=== PATIENT | female | born 1965 | race Caucasian/White ===

== ENCOUNTER 2018-12-30 20:19 | Inpatient (IN) | payer OTHER ==
--- NOTE | 2018-12-30 20:35 | PDOC ---
Rapid Medical Evaluation Time Seen by Provider: 12/30/18 20:28 Medical Evaluation: 12/30/18 20:28 I have performed a brief in-person evaluation of this patient. The patient presents with a chief complaint of: sent by PMD for osteomyelitis Pertinent physical exam findings: R 3rd finger paronychia I have ordered the following: labs, urine The patient will proceed to the ED for further evaluation. Discharge Disposition - Diagnosis Paronychia - Referrals - Patient Instructions - Post Discharge Activity
[2018-12-30 21:26] LABS: BASO % 0.5 % (0-2.0); EOS % 1.2 % (0-4.5); HEMOGLOBIN 13.5 GM/dL (10.7-15.3); LYMPH % 29.6 % (8-40); MCH 30.1 pg (25.7-33.7); MCHC 33.8 g/dl (32.0-36.0); MEAN CELL VOLUME 89.1 fl (80-96); MEAN PLT VOLUME 8.1 fl (7.5-11.1); MONO % 9.9 % (3.8-10.2); NEUT % 58.8 % (42.8-82.8); PLATELET COUNT 189 K/MM3 (134-434); RBC 4.48 M/mm3 (3.60-5.2); RDW 14.3 % (11.6-15.6); WHITE BLOOD COUNT 4.1 K/mm3 (4.0-10.0)
[2018-12-30 21:52] LABS: URINE APPEARANCE CLEAR; URINE BILIRUBIN NEGATIVE (<2.0 mg/dL); URINE COLOR STRAW; URINE GLUCOSE (UA) NEGATIVE (NEGATIVE); URINE KETONE NEGATIVE (NEGATIVE); URINE LEUK ESTERASE NEGATIVE (NEGATIVE); URINE NITRITE NEGATIVE (NEGATIVE); URINE PROTEIN 1+ (NEGATIVE); URINE UROBILINOGEN NEGATIVE mg/dL (0.2-1.0)
[2018-12-30 21:53] LABS: HCG,QUALITATIVE URINE Negative
--- NOTE | 2018-12-30 21:55 | PDOC ---
*Physical Exam - Vital Signs Last Vital Signs Temp Pulse Resp BP Pulse Ox 98.5 F 74 18 120/76 97 12/30/18 20:33 12/30/18 20:33 12/30/18 20:33 12/30/18 20:33 12/30/18 20:33 ED Treatment Course - LABORATORY CBC & Chemistry Diagram: 12/30/18 21:02 12/30/18 21:05 - ADDITIONAL ORDERS Additional order review: Laboratory Results 12/30/18 21:09 Urine HCG, Qual Negative 12/30/18 21:02 RBC 4.48 MCV 89.1 MCHC 33.8 RDW 14.3 MPV 8.1 Neutrophils % 58.8 Lymphocytes % 29.6 Monocytes % 9.9 Eosinophils % 1.2 Basophils % 0.5 Medical Decision Making - Medical Decision Making 12/30/18 21:54 Sock the rightPatient seen by the advanced practice provider under my direct supervision. Ancillary testing reviewed as necessary. I agree with plan as outlined by the advanced practice provider. *DC/Admit/Observation/Transfer Diagnosis at time of Disposition: Paronychia, Osteomyelitis - Referrals - Patient Instructions - Post Discharge Activity
[2018-12-30 22:12] LABS: ALBUMIN 3.5 g/dl (3.4-5.0); ALK PHOS 57 U/L (45-117); ANION GAP 5 MMOL/L (8-16); BILIRUBIN,TOTAL 0.2 mg/dL (0.2-1); BLOOD UREA NITROGEN 19 mg/dL (7-18); CALCIUM 8.7 mg/dL (8.5-10.1); CHLORIDE 102 mmol/L (98-107); CO2 30 mmol/L (21-32); CREATININE 0.6 mg/dL (0.55-1.3); GLUCOSE,RANDOM 74 mg/dL (74-106); POTASSIUM 3.9 mmol/L (3.5-5.1); SGOT/AST 32 U/L (15-37); SGPT/ALT 33 U/L (13-61); SODIUM 136 mmol/L (136-145)
--- NOTE | 2018-12-30 22:27 | PDOC ---
History of Present Illness - General Chief Complaint: Pain Stated Complaint: DOCTOR SENT HER Time Seen by Provider: 12/30/18 20:28 History Source: Patient Exam Limitations: Language Barrier Past History - Past Medical History Allergies/Adverse Reactions: Allergies Allergy/AdvReac Type Severity Reaction Status Date / Time No Known Allergies Allergy Verified 12/30/18 20:29 COPD: No Other medical history: Lupus, Reynauds - Surgical History Cardiac Surgery: Yes (Pericardiocentesis 2014) - Suicide/Smoking/Psychosocial Hx Smoking History: Never smoked Have you smoked in the past 12 months: No Information on smoking cessation initiated: No Hx Alcohol Use: No Drug/Substance Use Hx: No *Physical Exam - Vital Signs Last Vital Signs Temp Pulse Resp BP Pulse Ox 98.5 F 74 18 120/76 97 12/30/18 20:33 12/30/18 20:33 12/30/18 20:33 12/30/18 20:33 12/30/18 20:33 - Physical Exam General Appearance: No: Apparent Distress Neck: positive: Supple Respiratory/Chest: positive: Lungs Clear, Normal Breath Sounds. negative: Respiratory Distress Cardiovascular: positive: Regular Rhythm, Regular Rate, S1, S2. negative: Murmur Musculoskeletal: positive: Other (distal R middle finger with mild swelling, dried pus around nail bed, slight erythema to site, no fluctuance to site, no active drainage, no streaking) Extremity: positive: Normal Capillary Refill Neurologic: positive: Alert, Normal Mood/Affect Moderate Sedation - Procedure Monitoring Vital Signs: Procedure Monitoring Vital Signs Temperature 98.5 F 12/30/18 20:33 Pulse Rate 74 12/30/18 20:33 Respiratory Rate 18 12/30/18 20:33 Blood Pressure 120/76 12/30/18 20:33 O2 Sat by Pulse Oximetry (%) 97 12/30/18 20:33 ED Treatment Course - LABORATORY CBC & Chemistry Diagram: 12/30/18 21:02 12/30/18 21:05 - ADDITIONAL ORDERS Additional order review: Laboratory Results 12/30/18 12/30/18 21:09 21:05 Sodium 136 Potassium 3.9 Chloride 102 Carbon Dioxide 30 Anion Gap 5 L BUN 19 H Creatinine 0.6 Creat Clearance w eGFR > 60 Random Glucose 74 Calcium 8.7 Total Bilirubin 0.2 AST 32 ALT 33 Alkaline Phosphatase 57 C-Reactive Protein 0.4 H Total Protein 8.0 Albumin 3.5 Urine Color Straw Urine Appearance Clear Urine pH 6.0 Ur Specific [place] 1.009 L Urine Protein 1+ H Urine Glucose (UA) Negative Urine Ketones Negative Urine Blood Negative Urine Nitrite Negative Urine Bilirubin Negative Urine Urobilinogen Negative Ur Leukocyte Esterase Negative Urine WBC (Auto) <1 Urine RBC (Auto) <1 Urine HCG, Qual Negative 12/30/18 21:02 RBC 4.48 MCV 89.1 MCHC 33.8 RDW 14.3 MPV 8.1 Neutrophils % 58.8 Lymphocytes % 29.6 Monocytes % 9.9 Eosinophils % 1.2 Basophils % 0.5 - RADIOLOGY Radiology Studies Ordered: Category Date Time Status FINGER(S) RIGHT [RAD] Stat Radiology 12/30/18 22:24 Ordered Medical Decision Making - Medical Decision Making 53 y/o F with hx of Raynaud's, Lupus presents as was sent by her PCP for R middle finger infection. Patient mentions R middle finger has been swollen and red for 1 month and last week, patient had MRI done which raised concern for osteomyelitis. Patient was notified of MRI results today and was advised to come to [facility] for evaluation. Denies trauma to finger. Mentions due to her Raynaud's disease, she frequently will get mild infections along her fingertips (from skin getting dry and cracked), but usually they drain and resolve with antibiotics. However, this is first time it has progressed to osteomyelitis. Mentions she just recently finished 10 day course of Doxycycline 2 days ago. Denies fever, sob, cp, abd pain, n/v. Patient did not have MRI report with her Spoke to patient's vascular doctor, Dr. Mora, who faxed over MRI report MRI shows OM of 3rd distal phalanx with overlying cellulitis Dr. Mora requests admission and ID consult for drug tx of choice Labs sent Will give Vancomycin and Ceftriaxone To admit patient 12/30/18 22:33 *DC/Admit/Observation/Transfer Diagnosis at time of Disposition: Osteomyelitis Qualifiers: Osteomyelitis type: other acute Osteomyelitis location: hand Laterality: right Qualified Code(s): M86.141 - Other acute osteomyelitis, right hand - Discharge Dispostion Condition at time of disposition: Stable Decision to Admit order: Yes - Referrals - Patient Instructions - Post Discharge Activity
[2018-12-30] MEDS ORDERED: CEFTRIAXONE 2,000 MG in DEXTROSE 5%-WATER - 50 ML IVPB ONE (23:20)
[2018-12-30] MEDS ORDERED: VANCOMYCIN 1 GM in D5W (PRE-DOCKED) 1,000 MG/250 ML IVPB ONE (23:21)
[2018-12-31] MEDS ORDERED: VANCOMYCIN 1 GRAM (PRE-DOCKED) 1,000 MG/250 ML BAG IVPB ONE (00:20)
[2018-12-31] MEDS ORDERED: CEFTRIAXONE 2 GM/100 ML BAG IVPB ONE (00:20)
[2018-12-31] MEDS: VANCOMYCIN 1 GM in D5W (PRE-DOCKED) 1,000 MG/250 ML IVPB SCH ×2 (01:22→13:23)
--- NOTE | 2018-12-31 01:32 | PN ---
Teaching Attending Note Name of Resident: Sarita Smith ATTENDING PHYSICIAN STATEMENT I saw and evaluated the patient. I reviewed the resident's note and discussed the case with the resident. I agree with the resident's findings and plan as documented. SUBJECTIVE: Patient is a 53 year old woman with PMH of Raynaud's and SLE sent by her PCP for right middle finger infection. Patient says right middle finger has been swollen and red for one month and last week, patient had MRI done which raised concern for osteomyelitis. Patient was notified of MRI results today and was advised to come to [facility] for evaluation. Denies trauma to finger. Due to her Raynaud's disease, says she frequently will get mild infections along her fingertips (from skin getting dry and cracked), but usually they drain and resolve with antibiotics. However, this is first time it has progressed to osteomyelitis. She just recently finished 10 day course of Doxycycline 2 days ago. Denies fever, sob, chest pain, chills, abdominal pain, nausea, vomiting, change in bowel habits or dysuria. OBJECTIVE: Alert Vital Signs Period Temp Pulse Resp BP Sys/[place] Pulse Ox Last 24 Hr 98.5 F 74 18 120/76 97 HEENT: No Jaundice, eye redness or discharge, PERRLA, EOMI. Normocephalic, atraumatic. External ears are normal and hearing is grossly intact. No nasal discharge. Neck: Supple, nontender. No palpable adenopathy or thyromegaly. No JVD Chest: Good effort. Clear to auscultation and percussion. Heart: Regular. No S3, rub or murmur Abdomen: Not distended, soft, nontender and no HSM. No rebound or guarding. Normal bowel sounds. Ext: Peripheral pulses intact. Swollen distal right middle finger with wound on the nail bed. No drainage but tender. Skin: Warm and dry. No petechiae, rash or ecchymosis. Neuro: Alert. Oriented x3. CN 2-12 grossly intact. Sensation grossly intact in all four extremities and DTR are symmetric. Psych: Appropriate mood and affect. Good insight. Current Medications Generic Name Dose Route Start Last Admin Trade Name Freq PRN Reason Stop Dose Admin Enoxaparin Sodium 40 mg 12/31/18 10:00 Lovenox - SQ DAILY KENNETH Ceftriaxone Sodium 2,000 mg/ 50 mls @ 100 mls/hr 12/31/18 20:00 Dextrose IVPB DAILY KENNETH Oxycodone/Acetaminophen 1 combo 12/31/18 01:00 Percocet 5/325 - PO Q6H PRN PAIN LEVEL 6-10 Vancomycin HCl 1,000 mg 12/31/18 01:15 12/31/18 01:22 Vancomycin (Pre-Docked) IVPB 1,000 mg Q12H KENNETH Administration Protocol Abnormal Lab Results 12/30/18 12/30/18 12/30/18 21:05 21:05 21:09 ESR 39 H Anion Gap 5 L BUN 19 H C-Reactive Protein 0.4 H Ur Specific [place] 1.009 L Urine Protein 1+ H ASSESSMENT AND PLAN: 1. Osteomyelitis and cellulitis of right middle finger - MRI shows osteomyelitis of 3rd distal phalanx with overlying cellulitis. Will send wound culture and treat with IV vancomycin and rocephin. Consult ID and Rheumatology. Continue current home regimen for SLE and Raynaud's. 2. DVT prophylaxis - Lovenox 40 mg SQ q 24 hours. 3. Advance directives - Full code
--- NOTE | 2018-12-31 01:57 | HP ---
CHIEF COMPLAINT:right 3rd finger wound PCP:Dr. Whitt Rheum: Dr. Mora HISTORY OF PRESENT ILLNESS: Patient is a 53 year old female with past medical history of SLE, Raynaud's and HTN, presented to the ED with nonhealing wound of the right 3rd finger since 1 month ago. Patient denies any trauma, reported her wound started one month ago at the nail bed, possibly due to her Raynaud's disease where she had similar episodes the past years during Winter time that resolved with oral antibiotics. This time, the wound worsened with her entire 3rd finger becoming swollen and tender. She went to her PCP where she was prescribed Doxycycline which she completed for 10 days. She noted improvement of the swelling but the wound persisted. Patient went to Dr. Mora's office for follow-up where MRI was ordered and results showed osteomyelitis. Patient was subsequently asked to come to the ED to be evaluated. Patient denies any fever, chills, headache, dizziness, nausea, vomiting, chest pain, SOB, palpitations, abdominal pain, diarrhea, urinary symptoms. ER course was notable for: (1)MRI right hand (10/23/19): Findings compatible with osteomyelitis of the third distal phalanx with overlying cellulitis. There is probable cellulitis involving the fourth distal ray as well as evidence for osteitis versus incipient osteomyelitis of the fourth distal phalanx. Possible osteitis invovling the second distal phalanx as well. No evidence for abscess. (2) (3) Recent Travel:denies PAST MEDICAL HISTORY: SLE Raynaud's HTN PAST SURGICAL HISTORY: Pericardiocentesis (2014 at [place] for pericardial effusion) delivery x1 Social History: Smoking:denies Alcohol:denies Drugs: denies Family History: Mother - HTN Allergies No Known Allergies Allergy (Verified 12/30/18 20:29) HOME MEDICATIONS: REVIEW OF SYSTEMS CONSTITUTIONAL: Absent: fever, chills, diaphoresis, generalized weakness, malaise, loss of appetite, weight change HEENT: Absent: rhinorrhea, nasal congestion, throat pain, throat swelling, difficulty swallowing, mouth swelling, ear pain, eye pain, visual changes CARDIOVASCULAR: Absent: chest pain, syncope, palpitations, irregular heart rate, lightheadedness , peripheral edema RESPIRATORY: Absent: cough, shortness of breath, dyspnea with exertion, orthopnea, wheezing, stridor, hemoptysis GASTROINTESTINAL: Absent: abdominal pain, abdominal distension, nausea, vomiting, diarrhea, constipation, melena, hematochezia GENITOURINARY: Absent: dysuria, frequency, urgency, hesitancy, hematuria, flank pain, genital pain MUSCULOSKELETAL: joint swelling, tenderness of right third distal phalanx Absent: myalgia, arthralgia, back pain, neck pain SKIN: Absent: rash, itching, pallor HEMATOLOGIC/IMMUNOLOGIC: Absent: easy bleeding, easy bruising, lymphadenopathy, frequent infections ENDOCRINE: Absent: unexplained weight gain, unexplained weight loss, heat intolerance, cold intolerance NEUROLOGIC: Absent: headache, focal weakness or paresthesias, dizziness, unsteady gait, seizure, mental status changes, bladder or bowel incontinence PSYCHIATRIC: Absent: anxiety, depression, suicidal or homicidal ideation, hallucinations. PHYSICAL EXAMINATION Vital Signs - 24 hr 12/30/18 20:33 Temperature 98.5 F Pulse Rate 74 Respiratory 18 Rate Blood Pressure 120/76 O2 Sat by Pulse 97 Oximetry (%) GENERAL: Awake, alert, and fully oriented, in no acute distress. HEAD: Normal with no signs of trauma. EYES:PERRLA, EOMI, sclera anicteric, conjunctiva clear. EARS, NOSE, THROAT: Ears normal,oropharynx clear without exudates. Moist mucous membranes. NECK: Normal range of motion, supple without lymphadenopathy, JVD, or masses. LUNGS: Breath sounds equal, clear to auscultation bilaterally. HEART: Regular rate and rhythm, normal S1 and S2 without murmur, rub or gallop. ABDOMEN: Soft, nontender, not distended, normoactive bowel sounds. MUSCULOSKELETAL: Normal range of motion at all joints. No CVA tenderness. UPPER EXTREMITIES: 2+ pulses, warm, well-perfused. No peripheral edema. Right hand: +nondraining wound with eschar on the 3rd distal phalanx of right hand, + tenderness, warmth and erythema of the right 3rd finger. LOWER EXTREMITIES: 2+ pulses, warm, well-perfused. No calf tenderness. No peripheral edema. NEUROLOGICAL: Cranial nerves II-XII intact. Motor strength 5/5, Sensation intact. Normal speech. Normal gait. PSYCHIATRIC: Cooperative. Good eye contact. Appropriate mood and affect. SKIN: Warm, dry, normal turgor. Laboratory Results - last 24 hr 12/30/18 12/30/18 12/30/18 21:02 21:05 21:05 WBC 4.1 RBC 4.48 Hgb 13.5 Hct 40.0 MCV 89.1 MCH 30.1 MCHC 33.8 RDW 14.3 Plt Count 189 MPV 8.1 Absolute Neuts (auto) 2.4 Neutrophils % 58.8 Lymphocytes % 29.6 Monocytes % 9.9 Eosinophils % 1.2 Basophils % 0.5 Nucleated RBC % 0 ESR 39 H Sodium 136 Potassium 3.9 Chloride 102 Carbon Dioxide 30 Anion Gap 5 L BUN 19 H Creatinine 0.6 Creat Clearance w eGFR > 60 Random Glucose 74 Calcium 8.7 Total Bilirubin 0.2 AST 32 ALT 33 Alkaline Phosphatase 57 C-Reactive Protein 0.4 H Total Protein 8.0 Albumin 3.5 Urine Color Urine Appearance Urine pH Ur Specific [place] Urine Protein Urine Glucose (UA) Urine Ketones Urine Blood Urine Nitrite Urine Bilirubin Urine Urobilinogen Ur Leukocyte Esterase Urine WBC (Auto) Urine RBC (Auto) Urine HCG, Qual 12/30/18 21:09 WBC RBC Hgb Hct MCV MCH MCHC RDW Plt Count MPV Absolute Neuts (auto) Neutrophils % Lymphocytes % Monocytes % Eosinophils % Basophils % Nucleated RBC % ESR Sodium Potassium Chloride Carbon Dioxide Anion Gap BUN Creatinine Creat Clearance w eGFR Random Glucose Calcium Total Bilirubin AST ALT Alkaline Phosphatase C-Reactive Protein Total Protein Albumin Urine Color Straw Urine Appearance Clear Urine pH 6.0 Ur Specific [place] 1.009 L Urine Protein 1+ H Urine Glucose (UA) Negative Urine Ketones Negative Urine Blood Negative Urine Nitrite Negative Urine Bilirubin Negative Urine Urobilinogen Negative Ur Leukocyte Esterase Negative Urine WBC (Auto) <1 Urine RBC (Auto) <1 Urine HCG, Qual Negative ASSESSMENT/PLAN: Patient is a 53 year old female with past medical history of SLE, Raynaud's and HTN, presented to the ED with nonhealing wound of the right 3rd finger since 1 month ago. #Cellulitis/Osteomyelitis of the right 3rd distal phalanx -Xray of right 3rd finger done -MRI right hand (10/23/19): Findings compatible with osteomyelitis of the third distal phalanx with overlying cellulitis. There is probable cellulitis involving the fourth distal ray as well as evidence for osteitis versus incipient osteomyelitis of the fourth distal phalanx. Possible osteitis invovling the second distal phalanx as well. No evidence for abscess. -IV ceftriaxone 2gm and vancomycin given at the ED -Will continue Ceftriaxone 2gm daily as per rheum recs and Vancomycin 1gm q12h -ID (Dr. Acosta) consulted. -Wound care consult #HTN: chronic, controlled -Continue Amlodipine 2.5 mg daily #SLE -Continue Mycophenolate 500mg BID -Rheumatology (Dr. Mora) consult. #FEN -Not on any standing fluids -encourage increased oral fluid intake -Electrolytes wnl , routine bmp monitoring -Sodium controlled diet #Prophylaxis -Lovenox 40mg sq daily #Disposition -full code -admit to med-surg Visit type - Emergency Visit Emergency Visit: Yes ED Registration Date: 12/30/18 Care time: The patient presented to the Emergency Department on the above date and was hospitalized for further evaluation of their emergent condition. - New Patient This patient is new to me today: Yes Date on this admission: 12/31/18 - Critical Care Critical Care patient: No
[2018-12-31 04:38] VITALS: BMI 21.8
[2018-12-31 08:07] LABS: BASO % 0.6 % (0-2.0); EOS % 1.4 % (0-4.5); HEMATOCRIT 37.6 % (32.4-45.2); HEMOGLOBIN 12.6 GM/dL (10.7-15.3); LYMPH % 27.8 % (8-40); MCHC 33.6 g/dl (32.0-36.0); MEAN CELL VOLUME 89.2 fl (80-96); MEAN PLT VOLUME 7.9 fl (7.5-11.1); MONO % 11.7 % (3.8-10.2); NEUT % 58.5 % (42.8-82.8); PLATELET COUNT 175 K/MM3 (134-434); RBC 4.21 M/mm3 (3.60-5.2); RDW 14.4 % (11.6-15.6); WHITE BLOOD COUNT 3.5 K/mm3 (4.0-10.0)
[2018-12-31 08:48] LABS: ANION GAP 4 MMOL/L (8-16); BLOOD UREA NITROGEN 19 mg/dL (7-18); CALCIUM 8.4 mg/dL (8.5-10.1); CHLORIDE 110 mmol/L (98-107); CO2 29 mmol/L (21-32); CREATININE 0.8 mg/dL (0.55-1.3); GLUCOSE,RANDOM 81 mg/dL (74-106); PHOSPHOROUS 4.7 mg/dL (2.5-4.9); POTASSIUM 4.2 mmol/L (3.5-5.1); SODIUM 143 mmol/L (136-145)
[2018-12-31] MEDS ORDERED: PT OWN MED DRAWER 7, Y5N ONE (09:17)
[2018-12-31] MEDS: ENOXAPARIN NA (PORCINE) 40 MG/0.4 ML DISP.SYRIN SQ SCH (09:19)
[2018-12-31] MEDS: MYCOPHENOLATE MOFETIL 500 MG TABLET PO SCH ×2 (09:25→22:06)
[2018-12-31] MEDS ORDERED: amLODIPine BESYLATE 5 MG TABLET (FP) PO SCH (10:00)
--- NOTE | 2018-12-31 13:06 | PN ---
Teaching Attending Note Name of Resident: Dawit Haney ATTENDING PHYSICIAN STATEMENT I saw and evaluated the patient. I reviewed the resident's note and discussed the case with the resident. I agree with the resident's findings and plan as documented. SUBJECTIVE:c/o pain in the tip of finger. states its been the same since september when MRI was done. denies CP, SOB, fever, chills, myalgias, N/V/C/D Had MRI of hand after failure of 10 day course of Doxycycline. OBJECTIVE: Last Vital Signs Temp Pulse Resp BP Pulse Ox 98 F 60 18 90/52 L 98 12/31/18 06:00 12/31/18 06:00 12/31/18 06:00 12/31/18 06:00 12/31/18 09:00 General NAD CV S1 S2 RRR no murmur/rub/gallop Lungs CTA B/L no wheezing/rales/rhonchi Extremities B/L hands with swelling noted at all the tips of digits with slight erythema. R middle finger with black eschar noted on lateral side of nail. whole tip is tender to palpation ASSESSMENT AND PLAN: 53yo F wtih PMH HTN, SLE with Raynaud presented to the ER wtih MRI report from another facility showing she has OM of the distal phalanx 1. R middle finger OM- mildly elevated CRP/ESR. started on vanco/ceftriaxone. will try to obtain images from other facility to evaluate. Consult ID and hand surgery to evaluate. obtain Bone Bx. will need to discuss options with patient for conservative management with recycling program manager IV abx vs amputation. pain control 2. SLE- cont home medications. rheum consulted 3. HTN- not hypertensive here and low. would hold norvasc at this time 4. DVT ppx- lovenox
--- NOTE | 2018-12-31 13:23 | PN ---
Progress Note (short form) - Note Progress Note: ID CONSULT DICTATED CHRONIC OSTEOMYELITIS 3RD DIGIT CONNECTIVE TISSUE DZ ON IMMUNOSUPPRESSIVE TX OBTAIN BONE BX FOR ROUTINE C/S, AFB/ FUNGAL PRIOR TO ANTIBIOTICS
--- NOTE | 2018-12-31 13:26 | PN ---
Physical Exam: SUBJECTIVE: Patient seen and examined at bedside. no acute events since admission. c/o pain in the tip of finger. states its been the same since September when MRI was done. Had MRI of hand after failure of 10 day course of Doxycycline. denies fever, chills, cp, sob, n/v/d, myalgias, urinary sxs. OBJECTIVE: Vital Signs Period Temp Pulse Resp BP Sys/Ovalle Pulse Ox Last 24 Hr 98 F-98.5 F 60-74 18-18 90-120/52-76 97-98 GENERAL: Awake, alert, and fully oriented, in no acute distress. HEAD: Normal with no signs of trauma. EYES:PERRLA, EOMI, sclera anicteric, conjunctiva clear. EARS, NOSE, THROAT: Ears normal,oropharynx clear without exudates. Moist mucous membranes. NECK: Normal range of motion, supple without lymphadenopathy, JVD, or masses. LUNGS: Breath sounds equal, clear to auscultation bilaterally. HEART: Regular rate and rhythm, normal S1 and S2 without murmur, rub or gallop. ABDOMEN: Soft, nontender, not distended, normoactive bowel sounds. MUSCULOSKELETAL: Normal range of motion at all joints. No CVA tenderness. UPPER EXTREMITIES: 2+ pulses, warm, well-perfused. B/L hands with swelling noted at all the tips of digits with slight erythema Right hand: +nondraining wound with black eschar on the 3rd distal phalanx of right hand on lateral side of nail, +tenderness at tip, warmth and erythema of the right 3rd finger. LOWER EXTREMITIES: 2+ pulses, warm, well-perfused. No calf tenderness. No peripheral edema. NEUROLOGICAL: Cranial nerves II-XII intact. Motor strength 5/5, Sensation intact. Normal speech. Normal gait. PSYCHIATRIC: Cooperative. Good eye contact. Appropriate mood and affect. SKIN: Warm, dry, normal turgor. Laboratory Results - last 24 hr 12/30/18 12/30/18 12/30/18 21:02 21:05 21:05 WBC 4.1 RBC 4.48 Hgb 13.5 Hct 40.0 MCV 89.1 MCH 30.1 MCHC 33.8 RDW 14.3 Plt Count 189 MPV 8.1 Absolute Neuts (auto) 2.4 Neutrophils % 58.8 Lymphocytes % 29.6 Monocytes % 9.9 Eosinophils % 1.2 Basophils % 0.5 Nucleated RBC % 0 ESR 39 H Sodium 136 Potassium 3.9 Chloride 102 Carbon Dioxide 30 Anion Gap 5 L BUN 19 H Creatinine 0.6 Creat Clearance w eGFR > 60 Random Glucose 74 Calcium 8.7 Phosphorus Magnesium Total Bilirubin 0.2 AST 32 ALT 33 Alkaline Phosphatase 57 C-Reactive Protein 0.4 H Total Protein 8.0 Albumin 3.5 Urine Color Urine Appearance Urine pH Ur Specific [place] Urine Protein Urine Glucose (UA) Urine Ketones Urine Blood Urine Nitrite Urine Bilirubin Urine Urobilinogen Ur Leukocyte Esterase Urine WBC (Auto) Urine RBC (Auto) Urine HCG, Qual 12/30/18 12/31/18 12/31/18 21:09 07:40 07:40 WBC 3.5 L RBC 4.21 Hgb 12.6 Hct 37.6 MCV 89.2 MCH 30.0 MCHC 33.6 RDW 14.4 Plt Count 175 MPV 7.9 Absolute Neuts (auto) 2.0 Neutrophils % 58.5 Lymphocytes % 27.8 Monocytes % 11.7 H Eosinophils % 1.4 Basophils % 0.6 Nucleated RBC % 0 ESR Sodium 143 Potassium 4.2 Chloride 110 H Carbon Dioxide 29 Anion Gap 4 L BUN 19 H Creatinine 0.8 Creat Clearance w eGFR > 60 Random Glucose 81 Calcium 8.4 L Phosphorus 4.7 Magnesium 2.0 Total Bilirubin AST ALT Alkaline Phosphatase C-Reactive Protein Total Protein Albumin Urine Color Straw Urine Appearance Clear Urine pH 6.0 Ur Specific [place] 1.009 L Urine Protein 1+ H Urine Glucose (UA) Negative Urine Ketones Negative Urine Blood Negative Urine Nitrite Negative Urine Bilirubin Negative Urine Urobilinogen Negative Ur Leukocyte Esterase Negative Urine WBC (Auto) <1 Urine RBC (Auto) <1 Urine HCG, Qual Negative Active Medications Generic Name Dose Route Start Last Admin Trade Name Freq PRN Reason Stop Dose Admin Enoxaparin Sodium 40 mg 12/31/18 10:00 12/31/18 09:19 Lovenox - SQ 40 mg DAILY KENNETH Administration Mycophenolate Mofetil 500 mg 12/31/18 10:00 12/31/18 09:25 Cellcept - PO 500 mg BID KENNETH Administration Oxycodone/Acetaminophen 1 combo 12/31/18 01:00 12/31/18 02:20 Percocet 5/325 - PO 1 combo Q6H PRN Administration PAIN LEVEL 6-10 [id number] RAD/FINGER(S) RIGHT Rule out osteomyelitis of the right middle finger X-ray of the right middle finger, 3 views. The alignment is satisfactory without evidence of a fracture, dislocation, bone erosion or periosteal elevation. There is suggestion of mild soft tissue swelling. Impression: No gross bone abnormality is seen. Correlate clinically to determine further evaluation. MRI of the right third finger is suggested to rule out osteomyelitis considering the clinical history. ASSESSMENT/PLAN: 53 yo F PMH SLE, Raynaud's and HTN, presented to the ED with nonhealing wound of the right 3rd finger and MRI report from another facility showing she has OM of the distal phalanx. #Chronic Osteomyelitis of the right 3rd distal phalanx - mildly elevated CRP/ ESR. -MRI right hand (10/23/18): Findings compatible with osteomyelitis of the third distal phalanx with overlying cellulitis. There is probable cellulitis involving the fourth distal ray as well as evidence for osteitis versus incipient osteomyelitis of the fourth distal phalanx. Possible osteitis invovling the second distal phalanx as well. No evidence for abscess. -Xray of right 3rd finger - No gross bone abnormality is seen -s/p IV ceftriaxone 2gm and vancomycin given at the ED -ID (Dr. Acosta) consulted. -Surgery consult -will try to obtain images from other facility to evaluate -obtain Bone Bx for routine C/S, AFB/ FUNGAL, prior to further abx, ID recs appreciated -will need to discuss options with patient for conservative management with termite control service representative IV abx vs amputation. -pain control -Trend ESR weekly -f/u bcx, ucx #HTN: not hypertensive here and low -hold norvasc at this time #SLE -Continue Mycophenolate 500mg BID -Rheumatology (Dr. Mora) consult. #FEN -Not on any standing fluids -encourage increased oral fluid intake -Electrolytes wnl , routine bmp monitoring -Sodium controlled diet #Prophylaxis -Lovenox 40mg sq daily #Disposition -full code -admit to med-surg -will need to discuss options with patient for conservative management with fpc IV abx vs amputation. Visit type - Emergency Visit Emergency Visit: Yes ED Registration Date: 12/30/18 Care time: The patient presented to the Emergency Department on the above date and was hospitalized for further evaluation of their emergent condition. - New Patient This patient is new to me today: Yes Date on this admission: 12/31/18 - Critical Care Critical Care patient: No
--- NOTE | 2018-12-31 13:48 | EKG ---
Test Reason : Blood Pressure : / mmHG Vent. Rate : 074 BPM Atrial Rate : 074 BPM P-R Int : 174 ms QRS Dur : 076 ms QT Int : 404 ms P-R-T Axes : 056 016 019 degrees QTc Int : 448 ms NORMAL SINUS RHYTHM NORMAL ECG NO PREVIOUS ECGS AVAILABLE Confirmed by MD Casey, Ceasar ([id number]) on 12/31/2018 1:47:43 PM Referred By: Confirmed By:Ceasar Peña MD
--- NOTE | 2018-12-31 15:52 | CONSULT ---
Consult Consult Specialty:: Hand and Microsurgery Reason for Consultation:: right middle finger osteomyelitis - History of Present Illness Chief Complaint: right middle finger wound History of Present Illness: 53 yo RHD female PMH SLE, Raynaud's and HTN presented to the ED with chronic non -healing wound of the right 3rd finger for 1 month. Patient denies any trauma, reported her wound started one month ago at the nail bed, possibly due to her Raynaud's disease where she had similar episodes the past years during Winter time that resolved with oral antibiotics. This time, the wound worsened with her entire 3rd finger becoming swollen and tender. She went to her PCP where she was prescribed Doxycycline which she completed for 10 days. She noted improvement of the swelling but the wound persisted. Patient went to Dr. Mora' s office for follow-up where MRI was ordered and results showed osteomyelitis. Patient was subsequently asked to come to the ED to be evaluated. Patient denies any fever, chills, headache, dizziness, nausea, vomiting, chest pain, SOB , palpitations, abdominal pain, diarrhea, urinary symptoms. We were called to assess. her is current smoker ("but doesnt smoke in the house") and she has had senior living second hand exposure. - History Source History Provided By: Patient, Medical Record Limitations to Obtaining History: No Limitations - Past Medical History Cardio/Vascular: Yes: HTN ...LMP: 01/18/17 ...: No Rheumatology: Yes: Lupus, Other (Raynaud's Disease) - Alcohol/Substance Use Hx Alcohol Use: No - Smoking History Smoking history: Never smoked Have you smoked in the past 12 months: No Home Medications - Allergies Allergies/Adverse Reactions: Allergies Allergy/AdvReac Type Severity Reaction Status Date / Time No Known Allergies Allergy Verified 12/30/18 20:29 - Home Medications Home Medications: Ambulatory Orders Amlodipine Besylate 2.5 mg PO DAILY 12/31/18 Mycophenolate Mofetil [Cellcept -] 500 mg PO BID 12/31/18 Oxycodone HCl/Acetaminophen [Percocet 5-325 mg Tablet] 1 tab PO Q6H PRN Review of Systems - Review of Systems Constitutional: denies: Chills, Fever Eyes: denies: Blind Spots, Recent Change in Vision HENT: denies: Difficult Swallowing, Toothache Cardiovascular: denies: Chest Pain, Palpitations Respiratory: denies: Cough, SOB Gastrointestinal: denies: Abdominal Pain, Constipation Genitourinary: denies: Dysuria, Flank Pain Breasts: reports: No Symptoms Reported. denies: Pain Musculoskeletal: denies: Back Pain, Crepitus Integumentary: reports: Lesions, Rash. denies: Bruising, Change in Color Neurological: denies: Seizure, Syncope Endocrine: denies: Unexplained Weight Gain, Unexplained Weight Loss Hematology/Lymphatic: denies: Easily Bruised, Excessive Bleeding Psychiatric: denies: Anxiety, Depression Physical Exam Vital Signs: Vital Signs Temperature 98.5 F 12/31/18 13:18 Pulse Rate 67 12/31/18 13:18 Respiratory Rate 18 12/31/18 13:18 Blood Pressure 103/60 12/31/18 13:18 O2 Sat by Pulse Oximetry (%) 98 12/31/18 09:00 Constitutional: Yes: Well Nourished, No Distress, Calm Eyes: Yes: Conjunctiva Clear, EOM Intact HENT: Yes: Atraumatic, Normocephalic Neck: Yes: Supple, Trachea Midline Cardiovascular: Yes: Regular Rate and Rhythm, S1, S2 Respiratory: Yes: Regular, CTA Bilaterally Gastrointestinal: Yes: Normal Bowel Sounds, Soft. No: Tenderness ...Rectal Exam: Yes: Deferred Renal/: No: CVA Tenderness - Left, CVA Tenderness - Right Musculoskeletal: No: Muscle Pain, Muscle Weakness Extremities: No: Cool, Cyanosis Edema: Yes Edema: RUE: 1+ Peripheral Pulses WNL: No Integumentary: Yes: Pressure Ulcer (right middle finger paronychial ulcer with surrounding erythema and swelling. there is retraction of the cuticle). No: Jaundice Neurological: Yes: Alert, Oriented Psychiatric: Yes: Alert, Oriented Labs: CBC, BMP 12/31/18 07:40 12/31/18 07:40 Imaging - Results X-ray: Report Reviewed, Image Reviewed (no fractue or dicalocation right middle finger) Problem List - Problems (1) Osteomyelitis Assessment/Plan: 53yo with MMP including SLE and Raynauds disease with a spontaneous skin gangrene with RMF osteomyelitis and skin necrosis. Because of the underlying microvascular compromise there is an increased risk of post op wound complication. The possibility of needing subsequent amputation is significantly high in this case. Even the severe cold of winter may cause problems postopertively. This was all discussed with the patient (in estonian and slovenian) she would like the opportunity to think about things. Consider empiric IV antibiotics therapy Keep hands warm Calcium channel omkar or topical nitrate therapy smoking cessation for her spouse OR for RMF bone biopsy planned for 01/02/19 at 3pm Discussed with patient risks, benefits and alternatives of aforemention procedure. including but not limited to bleeding, infection, injury to adjacent structures, wound dehissance, need for amputation, worseing osteomyelitis, need for further procedures, ; alternatives include antibiotics, delayed or no surgery - risks of this include failure of nonoperative therapy, sepsis, recurrence, . Patient desires to proceed with operation - will take to OR for above. Informed consent is pending. Code(s): M86.9 - OSTEOMYELITIS, UNSPECIFIED Qualifiers: Osteomyelitis type: other acute Osteomyelitis location: hand Laterality: right Qualified Code(s): M86.141 - Other acute osteomyelitis, right hand (2) Raynaud's disease with gangrene Code(s): I73.01 - RAYNAUD'S SYNDROME WITH GANGRENE (3) Lupus (systemic lupus erythematosus) Code(s): M32.9 - SYSTEMIC LUPUS ERYTHEMATOSUS, UNSPECIFIED Qualifiers: Systemic lupus erythematosus type: other
[2018-12-31] MEDS: ACETAMINOPHEN 325 MG TABLET (FP) PO PRN (16:08)
[2018-12-31] MEDS: oxyCODONE HCL 5 MG TABLET PO PRN (16:09)
--- NOTE | 2018-12-31 18:45 | CONSULT ---
Consult Consult Specialty:: Rheumatology - History of Present Illness History of Present Illness: 53 year old female with past medical history of SLE and HTN, admitted with osteomyelitis of the right 3rd finger. HPI. One year ago the patient developed an abscess in the distal phalanx of the right 3rd finger. The abscess was drained and afterwards she was asymptomatic with no pain or swelling. On this occasion, about 5 weeks ago she developed pain and swelling in the smae area, in the distal phalanx of the right 3rd finger afetr she had cut in the skin proximal to the nail bed. She again developed an abscess that drained spontaneously. She did nto have fever or systemic symptoms. She was treated with Cephalexin 500 mg BID for 10 days, the swelling improved and stopped draining ,however continued having significant pain. X ray of the finger (12/06/18) (done at [facility]) was reported with soft tissue swelling and otherwise it was normal. MRI right hand (10/23/19): findings compatible with osteomyelitis of the third distal phalanx with overlying cellulitis. There is probable cellulitis involving the fourth distal ray as well as evidence for osteitis versus incipient osteomyelitis of the fourth distal phalanx. Possible osteitis involving the second distal phalanx as well. No evidence for abscess. Since admission the patient has not have fever. Laboratory work-up revealed CBC with WBC of 3.5, Hgb 12.6, HCT 37.6 and platelets 175. ESR 39 and CRP 0.4, . Creatinine 0.8 and urinalysis with protein 1+ and no blood. Lupus. The patient has history of acrocyanosis, ANDRES, anti-Sm and anti-NEUROBIOLOGIST positive. (abnormal serology present at least since January 2012). Pericarditis requiring pericardial window on 09/02/15. Dry eyes on Restasis. (DC Hydroxychloroquine 200 mg/d 2o to probable retinopathy). She has been stable on low dose Mycophenolate (500 mg BID) and on Pilocarpine 5 mg BID. - History Source History Provided By: Patient, Medical Record Limitations to Obtaining History: No Limitations - Past Medical History ...LMP: 01/18/17 ...: No Rheumatology: Yes: Other (See HPI) - Alcohol/Substance Use Hx Alcohol Use: No - Smoking History Smoking history: Never smoked Have you smoked in the past 12 months: No Home Medications - Allergies Allergies/Adverse Reactions: Allergies Allergy/AdvReac Type Severity Reaction Status Date / Time No Known Allergies Allergy Verified 12/30/18 20:29 - Home Medications Home Medications: Ambulatory Orders Amlodipine Besylate 2.5 mg PO DAILY 12/31/18 Mycophenolate Mofetil [Cellcept -] 500 mg PO BID 12/31/18 Oxycodone HCl/Acetaminophen [Percocet 5-325 mg Tablet] 1 tab PO Q6H PRN Review of Systems - Review of Systems Constitutional: reports: No Symptoms Eyes: reports: Other (Dry eyes) HENT: reports: No Symptoms Neck: reports: No Symptoms Cardiovascular: reports: No Symptoms Respiratory: reports: No Symptoms Gastrointestinal: reports: No Symptoms Genitourinary: reports: No Symptoms Musculoskeletal: reports: Other (See HPI) Physical Exam Vital Signs: Vital Signs Temperature 97.8 F 12/31/18 18:08 Pulse Rate 61 12/31/18 18:08 Respiratory Rate 18 12/31/18 18:08 Blood Pressure 109/71 12/31/18 18:08 O2 Sat by Pulse Oximetry (%) 98 12/31/18 09:00 Constitutional: Yes: Mild Distress Eyes: Yes: WNL HENT: Yes: WNL Neck: Yes: WNL Cardiovascular: Yes: WNL Respiratory: Yes: WNL Gastrointestinal: Yes: WNL Musculoskeletal: Yes: Other (Tenderness in the distal phalanx of the right 3rd finger. Midl diffuse swelling of the finger. No oher active joints.) Labs: CBC, BMP 12/31/18 07:40 12/31/18 07:40 Laboratory Tests 12/30/18 12/30/18 12/30/18 21:05 21:05 21:09 ESR 39 H Random Glucose Calcium Phosphorus Magnesium Total Bilirubin 0.2 AST 32 ALT 33 Alkaline Phosphatase 57 C-Reactive Protein 0.4 H Total Protein 8.0 Albumin 3.5 Urine Color Straw Urine Appearance Clear Urine pH 6.0 Ur Specific [place] 1.009 L Urine Protein 1+ H Urine Glucose (UA) Negative Urine Ketones Negative Urine Blood Negative Urine Nitrite Negative Urine Bilirubin Negative Urine Urobilinogen Negative Ur Leukocyte Esterase Negative Urine WBC (Auto) <1 Urine RBC (Auto) <1 Urine HCG, Qual Negative 12/31/18 07:40 ESR Random Glucose 81 Calcium 8.4 L Phosphorus 4.7 Magnesium 2.0 Total Bilirubin AST ALT Alkaline Phosphatase C-Reactive Protein Total Protein Albumin Urine Color Urine Appearance Urine pH Ur Specific [place] Urine Protein Urine Glucose (UA) Urine Ketones Urine Blood Urine Nitrite Urine Bilirubin Urine Urobilinogen Ur Leukocyte Esterase Urine WBC (Auto) Urine RBC (Auto) Urine HCG, Qual Problem List - Problems (1) Lupus (systemic lupus erythematosus) Assessment/Plan: Disease not active - controlled with Mycophenolate 500 mg BID. Code(s): M32.9 - SYSTEMIC LUPUS ERYTHEMATOSUS, UNSPECIFIED (2) Osteomyelitis Assessment/Plan: History of 2 epsiodes of cellulitis in the same finger. MRI images indicative of osteomylitis. As per ID suggestion- obtain bone biopsy prior to treatment with antibiotics. Hand surgery consult pending. Code(s): M86.9 - OSTEOMYELITIS, UNSPECIFIED Qualifiers: Osteomyelitis type: other acute Osteomyelitis location: hand Laterality: right Qualified Code(s): M86.141 - Other acute osteomyelitis, right hand
[2018-12-31] MEDS ORDERED: CEFTRIAXONE 2 GM in DEXTROSE 5%-WATER 100 ML IVPB SCH (20:00)
[2019-01-01] MEDS: oxyCODONE HCL 5 MG TABLET PO PRN ×2 (06:41→22:37)
[2019-01-01] MEDS: ACETAMINOPHEN 325 MG TABLET (FP) PO PRN ×2 (06:41→22:37)
--- NOTE | 2019-01-01 07:45 | PN ---
Physical Exam: SUBJECTIVE: Patient seen and examined at bedside. no acute events overnight. c/ o pain in the tip of finger. states its been the same since September when MRI was done. Had MRI of hand after failure of 10 day course of Doxycycline. denies fever, chills, cp, sob, n/v/d, myalgias, urinary sxs. Faxed release of info forms to [facility] in order to obtain MRI pictures. They will mail us the discs. OBJECTIVE: Vital Signs Period Temp Pulse Resp BP Sys/Ovalle Pulse Ox Last 24 Hr 97.8 F-98.6 F 58-67 18-18 103-109/57-71 96-98 GENERAL: Awake, alert, and fully oriented, in no acute distress. HEAD: Normal with no signs of trauma. EYES:PERRLA, EOMI, sclera anicteric, conjunctiva clear. EARS, NOSE, THROAT: Ears normal,oropharynx clear without exudates. Moist mucous membranes. NECK: Normal range of motion, supple without lymphadenopathy, JVD, or masses. LUNGS: Breath sounds equal, clear to auscultation bilaterally. HEART: Regular rate and rhythm, normal S1 and S2 without murmur, rub or gallop. ABDOMEN: Soft, nontender, not distended, normoactive bowel sounds. MUSCULOSKELETAL: Normal range of motion at all joints. No CVA tenderness. UPPER EXTREMITIES: 2+ pulses, warm, well-perfused. B/L hands with swelling noted at all the tips of digits with slight erythema Right hand: +nondraining wound with black eschar on the 3rd distal phalanx of right hand on lateral side of nail, +tenderness at tip, warmth and erythema of the right 3rd finger. LOWER EXTREMITIES: 2+ pulses, warm, well-perfused. No calf tenderness. No peripheral edema. NEUROLOGICAL: Cranial nerves II-XII intact. Motor strength 5/5, Sensation intact. Normal speech. Normal gait. PSYCHIATRIC: Cooperative. Good eye contact. Appropriate mood and affect. SKIN: Warm, dry, normal turgor. Laboratory Results - last 24 hr 12/31/18 12/31/18 07:40 07:40 WBC 3.5 L RBC 4.21 Hgb 12.6 Hct 37.6 MCV 89.2 MCH 30.0 MCHC 33.6 RDW 14.4 Plt Count 175 MPV 7.9 Absolute Neuts (auto) 2.0 Neutrophils % 58.5 Lymphocytes % 27.8 Monocytes % 11.7 H Eosinophils % 1.4 Basophils % 0.6 Nucleated RBC % 0 Sodium 143 Potassium 4.2 Chloride 110 H Carbon Dioxide 29 Anion Gap 4 L BUN 19 H Creatinine 0.8 Creat Clearance w eGFR > 60 Random Glucose 81 Calcium 8.4 L Phosphorus 4.7 Magnesium 2.0 Active Medications Generic Name Dose Route Start Last Admin Trade Name Freq PRN Reason Stop Dose Admin Acetaminophen 325 mg 12/31/18 15:36 01/01/19 06:41 Tylenol - PO 325 mg Q6H PRN Administration PAIN SCALE 6-10 Enoxaparin Sodium 40 mg 12/31/18 10:00 12/31/18 09:19 Lovenox - SQ 40 mg DAILY KENNETH Administration Mycophenolate Mofetil 500 mg 12/31/18 10:00 12/31/18 22:06 Cellcept - PO 500 mg BID KENNETH Administration Oxycodone HCl 5 mg 12/31/18 15:36 01/01/19 06:41 Roxicodone - PO 5 mg Q6H PRN Administration PAIN SCALE 6-10 [id number] RAD/FINGER(S) RIGHT Rule out osteomyelitis of the right middle finger X-ray of the right middle finger, 3 views. The alignment is satisfactory without evidence of a fracture, dislocation, bone erosion or periosteal elevation. There is suggestion of mild soft tissue swelling. Impression: No gross bone abnormality is seen. Correlate clinically to determine further evaluation. MRI of the right third finger is suggested to rule out osteomyelitis considering the clinical history. ASSESSMENT/PLAN: 53 yo F PMH SLE, Raynaud's and HTN, presented to the ED with nonhealing wound of the right 3rd finger and MRI report from another facility showing she has OM of the distal phalanx. #Chronic Osteomyelitis of the right 3rd distal phalanx - mildly elevated CRP/ ESR. -MRI right hand (10/23/18): Findings compatible with osteomyelitis of the third distal phalanx with overlying cellulitis. There is probable cellulitis involving the fourth distal ray as well as evidence for osteitis versus incipient osteomyelitis of the fourth distal phalanx. Possible osteitis invovling the second distal phalanx as well. No evidence for abscess. -Xray of right 3rd finger - No gross bone abnormality is seen -awaiting MRI discs from [place] in the mail -s/p IV ceftriaxone 2gm and vancomycin given at the ED -ID (Dr. Acosta) consulted. -Surgery consult -NPO midnight for Bone Bx for routine C/S, AFB/ FUNGAL, prior to further abx, ID recs appreciated -will need to discuss options with patient for conservative management with snf IV abx vs amputation. -pain control -Trend CRP/ESR weekly -ucx, bcx neg #HTN: not hypertensive here and low -hold norvasc at this time #SLE -Continue Mycophenolate 500mg BID -Rheumatology (Dr. Mora) consult. #FEN -Not on any standing fluids -encourage increased oral fluid intake -replete prn -Sodium controlled diet, NPO midnight for Bone Bx #Prophylaxis -Lovenox 40mg sq daily, hold for ilir for bx #Disposition -full code -med-surg -will need to discuss options with patient for conservative management with termite treater IV abx vs amputation. -Faxed release of info forms to [facility] in order to obtain MRI pictures. They will mail us the discs. Visit type - Emergency Visit Emergency Visit: Yes ED Registration Date: 12/30/18 Care time: The patient presented to the Emergency Department on the above date and was hospitalized for further evaluation of their emergent condition. - New Patient This patient is new to me today: Yes Date on this admission: 01/01/19 - Critical Care Critical Care patient: No
[2019-01-01] MEDS ORDERED: PT OWN MED DRAWER 7, Y5N ONE (09:16)
[2019-01-01] MEDS: ENOXAPARIN NA (PORCINE) 40 MG/0.4 ML DISP.SYRIN SQ SCH (09:58)
[2019-01-01] MEDS: MYCOPHENOLATE MOFETIL 500 MG TABLET PO SCH ×2 (09:59→21:06)
--- NOTE | 2019-01-01 11:04 | PN ---
Teaching Attending Note Name of Resident: Dawit Haney ATTENDING PHYSICIAN STATEMENT I saw and evaluated the patient. I reviewed the resident's note and discussed the case with the resident. I agree with the resident's findings and plan as documented. SUBJECTIVE:no change. denies CP, SOB, fever, chills, N/V/C/D OBJECTIVE: Last Vital Signs Temp Pulse Resp BP Pulse Ox 97.5 F L 65 18 104/75 97 01/01/19 10:00 01/01/19 10:00 01/01/19 10:00 01/01/19 10:00 01/01/19 09:00 General NAD Extremities B/L hands with swelling noted at all the tips of digits with slight erythema. R middle finger with black eschar noted on lateral side of nail. whole tip is tender to palpation ASSESSMENT AND PLAN: 53yo F wtih PMH HTN, SLE with Raynaud presented to the ER wt MRI report from another facility showing she has OM of the distal phalanx 1. R middle finger OM- mildly elevated CRP/ESR. plan for bone bx in the AM. will start abx based on cx report. ID, rheum and hand surgeon on board. pain control 2. SLE- cont home medications. rheum consulted 3. HTN- not hypertensive here and low. would hold norvasc at this time 4. DVT ppx- lovenox
[2019-01-02 07:16] LABS: HEMATOCRIT 35.9 % (32.4-45.2); HEMOGLOBIN 12.1 GM/dL (10.7-15.3); MCH 29.9 pg (25.7-33.7); MCHC 33.8 g/dl (32.0-36.0); MEAN CELL VOLUME 88.3 fl (80-96); MEAN PLT VOLUME 8.1 fl (7.5-11.1); PLATELET COUNT 174 K/MM3 (134-434); RBC 4.07 M/mm3 (3.60-5.2); RDW 14.2 % (11.6-15.6); WHITE BLOOD COUNT 3.1 K/mm3 (4.0-10.0)
[2019-01-02 07:22] LABS: INR 1.02 (0.83-1.09)
[2019-01-02 07:25] LABS: ANION GAP 5 MMOL/L (8-16); BLOOD UREA NITROGEN 13 mg/dL (7-18); CALCIUM 8.2 mg/dL (8.5-10.1); CHLORIDE 106 mmol/L (98-107); CO2 28 mmol/L (21-32); CREATININE 0.7 mg/dL (0.55-1.3); GLUCOSE,RANDOM 83 mg/dL (74-106); POTASSIUM 3.9 mmol/L (3.5-5.1); SODIUM 139 mmol/L (136-145)
[2019-01-02] MEDS: MYCOPHENOLATE MOFETIL 500 MG TABLET PO SCH ×2 (09:09→21:04)
--- NOTE | 2019-01-02 11:13 | PN ---
Teaching Attending Note Name of Resident: Dawit Haney ATTENDING PHYSICIAN STATEMENT I saw and evaluated the patient. I reviewed the resident's note and discussed the case with the resident. I agree with the resident's findings and plan as documented. SUBJECTIVE:asymptomatic. denies CP, SOB, fever, chills, N/V/C/D OBJECTIVE: Last Vital Signs Temp Pulse Resp BP Pulse Ox 98.0 F 71 20 110/66 99 01/02/19 09:13 01/02/19 09:13 01/02/19 09:13 01/02/19 09:13 01/02/19 09:00 General NAD Extremities B/L hands with swelling noted at all the tips of digits with slight erythema. R middle finger with black eschar noted on lateral side of nail. whole tip is tender to palpation ASSESSMENT AND PLAN: 53yo F wtih PMH HTN, SLE with Raynaud presented to the ER [facility] MRI report from another facility showing she has OM of the distal phalanx 1. R middle finger OM- mildly elevated CRP/ESR. Bone Bx today. will need PICC line [facility] skilled nursing abx. will start empiric abx after Bx obtained and plan to tailor therapy once report is returned. ID, rheum and hand surgeon on board. pain control 2. SLE- cont home medications. rheum consulted 3. HTN- not hypertensive here and low. would hold norvasc at this time 4. DVT ppx- lovenox
--- NOTE | 2019-01-02 12:03 | PN ---
Progress Note, Physician History of Present Illness: NO C/O HAND PAIN NO WOUND DRAINAGE NO F/C FOR BONE BX TODAY - Current Medication List Current Medications: Active Medications Acetaminophen (Tylenol -) 325 mg PO Q6H PRN PRN Reason: PAIN SCALE 6-10 Last Admin: 01/01/19 22:37 Dose: 325 mg Enoxaparin Sodium (Lovenox -) 40 mg SQ DAILY [facility] Last Admin: 01/01/19 09:58 Dose: 40 mg Mycophenolate Mofetil (Cellcept -) 500 mg PO BID [facility] Last Admin: 01/02/19 09:09 Dose: Not Given Oxycodone HCl (Roxicodone -) 5 mg PO Q6H PRN PRN Reason: PAIN SCALE 6-10 Last Admin: 01/01/19 22:37 Dose: 5 mg - Objective Vital Signs: Vital Signs Temperature 98.0 F 01/02/19 09:13 Pulse Rate 71 01/02/19 09:13 Respiratory Rate 20 01/02/19 09:13 Blood Pressure 110/66 01/02/19 09:13 O2 Sat by Pulse Oximetry (%) 99 01/02/19 09:00 Constitutional: Yes: No Distress Eyes: Yes: Conjunctiva Clear Cardiovascular: Yes: Regular Rate and Rhythm, S1, S2 Respiratory: Yes: CTA Bilaterally Gastrointestinal: Yes: Normal Bowel Sounds, Soft. No: Tenderness Extremities: Yes: Other (SWELLING DISTAL R 3RD DIGIT SL ERYTHEMA NO DRAINAGE) Labs: CBC, BMP 01/02/19 06:15 01/02/19 06:15 INR, PTT INR 1.02 (0.83-1.09) 01/02/19 06:15 Assessment/Plan CHRONIC OSTEOMYELITIS DISTAL R 3RD PHALANX HX CONNECTIVE TISSUE DZ FOR BX TODAY SPECIMEN FOR PATHOLOGY, ROUTINE C/S, AFB/ FUNGAL C/S EMPIRIC VANCOMYCIN CEFEPIME PENDING C/S
--- NOTE | 2019-01-02 14:28 | PN ---
Physical Exam: SUBJECTIVE: Patient seen and examined at bedside. no acute events overnight. c/ o pain in the tip of finger. states its been the same since November when MRI was done. Had MRI of hand after failure of 10 day course of Doxycycline. denies fever, chills, cp, sob, n/v/d, myalgias, urinary sxs. Faxed release of info forms to [facility] in order to obtain MRI pictures. They will mail us the discs. error in documentation. MRI right hand was done 12/24/18 and not on 10/23/18. Pt sxs began 5 wks ago as noted in Dr. Mora's note. For further details please see Dr. Mora's note. pt was for bx today but surgeon was hesitant to perform bx due to risk of post op complications. We will consult surgeon Dr. Chakraborty for a second opinion at this time. discussed w/ pt options of snf vs home for abx tx and states at this time she would like to go home after bx and be taught how to self administer abx. OBJECTIVE: Vital Signs Period Temp Pulse Resp BP Sys/Ovalle Pulse Ox Last 24 Hr 97.6 F-98.3 F 66-77 18-20 106-126/61-76 98-99 GENERAL: Awake, alert, and fully oriented, in no acute distress. HEAD: Normal with no signs of trauma. EYES:PERRLA, EOMI, sclera anicteric, conjunctiva clear. EARS, NOSE, THROAT: Ears normal,oropharynx clear without exudates. Moist mucous membranes. NECK: Normal range of motion, supple without lymphadenopathy, JVD, or masses. LUNGS: Breath sounds equal, clear to auscultation bilaterally. HEART: Regular rate and rhythm, normal S1 and S2 without murmur, rub or gallop. ABDOMEN: Soft, nontender, not distended, normoactive bowel sounds. MUSCULOSKELETAL: Normal range of motion at all joints. No CVA tenderness. UPPER EXTREMITIES: 2+ pulses, warm, well-perfused. B/L hands with swelling noted at all the tips of digits with slight erythema Right hand: +nondraining wound with black eschar on the 3rd distal phalanx of right hand on lateral side of nail, +tenderness at tip, warmth and erythema of the right 3rd finger. LOWER EXTREMITIES: 2+ pulses, warm, well-perfused. No calf tenderness. No peripheral edema. NEUROLOGICAL: Cranial nerves II-XII intact. Motor strength 5/5, Sensation intact. Normal speech. Normal gait. PSYCHIATRIC: Cooperative. Good eye contact. Appropriate mood and affect. SKIN: Warm, dry, normal turgor. Laboratory Results - last 24 hr 01/02/19 01/02/19 01/02/19 06:15 06:15 06:15 WBC 3.1 L RBC 4.07 Hgb 12.1 Hct 35.9 MCV 88.3 MCH 29.9 MCHC 33.8 RDW 14.2 Plt Count 174 MPV 8.1 PT with INR 12.00 INR 1.02 PTT (Actin FS) Sodium 139 Potassium 3.9 Chloride 106 Carbon Dioxide 28 Anion Gap 5 L BUN 13 Creatinine 0.7 Creat Clearance w eGFR > 60 Random Glucose 83 Calcium 8.2 L 01/02/19 06:15 WBC RBC Hgb Hct MCV MCH MCHC RDW Plt Count MPV PT with INR INR PTT (Actin FS) 34.9 Sodium Potassium Chloride Carbon Dioxide Anion Gap BUN Creatinine Creat Clearance w eGFR Random Glucose Calcium Active Medications Generic Name Dose Route Start Last Admin Trade Name Freq PRN Reason Stop Dose Admin Acetaminophen 325 mg 12/31/18 15:36 01/01/19 22:37 Tylenol - PO 325 mg Q6H PRN Administration PAIN SCALE 6-10 Enoxaparin Sodium 40 mg 12/31/18 10:00 01/01/19 09:58 Lovenox - SQ 40 mg DAILY [facility] Administration Mycophenolate Mofetil 500 mg 12/31/18 10:00 01/02/19 09:09 Cellcept - PO Not Given BID [facility] Oxycodone HCl 5 mg 12/31/18 15:36 01/01/19 22:37 Roxicodone - PO 5 mg Q6H PRN Administration PAIN SCALE 6-10 0264-0857 RAD/FINGER(S) RIGHT Rule out osteomyelitis of the right middle finger X-ray of the right middle finger, 3 views. The alignment is satisfactory without evidence of a fracture, dislocation, bone erosion or periosteal elevation. There is suggestion of mild soft tissue swelling. Impression: No gross bone abnormality is seen. Correlate clinically to determine further evaluation. MRI of the right third finger is suggested to rule out osteomyelitis considering the clinical history. ASSESSMENT/PLAN: 53 yo F PMH SLE, Raynaud's and HTN, presented to the ED with nonhealing wound of the right 3rd finger and MRI report from another facility showing she has OM of the distal phalanx. #Subacute Osteomyelitis of the right 3rd distal phalanx - mildly elevated CRP/ ESR. -MRI right hand (12/24/18): Findings compatible with osteomyelitis of the third distal phalanx with overlying cellulitis. There is probable cellulitis involving the fourth distal ray as well as evidence for osteitis versus incipient osteomyelitis of the fourth distal phalanx. Possible osteitis invovling the second distal phalanx as well. No evidence for abscess. -Xray of right 3rd finger - No gross bone abnormality is seen -awaiting MRI discs from [facility] in the mail -s/p IV ceftriaxone 2gm and vancomycin given at the ED -ucx, bcx neg -ID (Dr. Foster) consulted. -Surgery consult -pain control -Trend CRP/ESR weekly -pt was for bx today but surgeon was hesitant to perform bx due to risk of post op complications. We will consult surgeon Dr. Chakraborty for a second opinion at this time. -NPO midnight for Bone Bx for routine C/S, AFB/ FUNGAL, prior to further abx, ID recs appreciated -discussed w/ pt options of snf vs home for abx tx and pt states at this time she would like to go home after bx and be taught how to self administer abx. -IR consulted for PICC after bx. pt will be dcd on empiric cefepime and vanc pending cx, ID recs appreciated #HTN: ctl -restart home dose norvasc #Raynaud's -restart home dose norvasc #SLE -Continue Mycophenolate 500mg BID -Rheumatology (Dr. Mora) consult. #FEN -Not on any standing fluids -encourage increased oral fluid intake -replete prn -Sodium controlled diet, NPO midnight for Bone Bx #Prophylaxis -Lovenox 40mg sq daily, cont to hold for possible bx ilir pending surgery eval -will give SQH x1 for now #Disposition -full code -med-surg -pt was for bx today but surgeon was hesitant to perform bx due to risk of post op complications. We will consult surgeon Dr. Chakraborty for a second opinion at this time. -discussed w/ pt options of snf vs home for abx tx and pt states at this time she would like to go home after bx and be taught how to self administer abx. -Faxed release of info forms to [facility] in order to obtain MRI pictures. They will mail us the discs. Visit type - Emergency Visit Emergency Visit: Yes ED Registration Date: 12/30/18 Care time: The patient presented to the Emergency Department on the above date and was hospitalized for further evaluation of their emergent condition. - New Patient This patient is new to me today: Yes Date on this admission: 01/02/19 - Critical Care Critical Care patient: No
[2019-01-02] MEDS ORDERED: HEPARIN NA (PORCINE) 5,000 UNITS/ML 1ML VIAL SQ ONE (14:33)
[2019-01-02] MEDS: amLODIPine BESYLATE 2.5 MG TABLET (FP) PO SCH (15:18)
[2019-01-02] MEDS: ACETAMINOPHEN 325 MG TABLET (FP) PO PRN (21:02)
[2019-01-02] MEDS: oxyCODONE HCL 5 MG TABLET PO PRN (21:04)
[2019-01-03 07:15] LABS: HEMATOCRIT 36.9 % (32.4-45.2); HEMOGLOBIN 12.6 GM/dL (10.7-15.3); MCH 30.8 pg (25.7-33.7); MCHC 34.2 g/dl (32.0-36.0); MEAN CELL VOLUME 89.9 fl (80-96); PLATELET COUNT 169 K/MM3 (134-434); RDW 14.1 % (11.6-15.6); WHITE BLOOD COUNT 3.1 K/mm3 (4.0-10.0)
[2019-01-03 07:24] LABS: INR 1.03 (0.83-1.09); PROTHROMBIN TIME (PATIENT) 12.1 SEC (9.7-13.0)
[2019-01-03 07:27] LABS: ACTIVATED PTT 32.6 SECONDS (25.2-36.5)
[2019-01-03 08:10] LABS: ANION GAP 7 MMOL/L (8-16); BLOOD UREA NITROGEN 14 mg/dL (7-18); CALCIUM 8.1 mg/dL (8.5-10.1); CHLORIDE 106 mmol/L (98-107); CO2 27 mmol/L (21-32); CREATININE 0.6 mg/dL (0.55-1.3); GLUCOSE,RANDOM 83 mg/dL (74-106); POTASSIUM 3.9 mmol/L (3.5-5.1); SODIUM 140 mmol/L (136-145)
[2019-01-03] MEDS ORDERED: PT OWN MED DRAWER 7, Y5N ONE (09:40)
[2019-01-03] MEDS: ENOXAPARIN NA (PORCINE) 40 MG/0.4 ML DISP.SYRIN SQ SCH (09:41)
[2019-01-03] MEDS: amLODIPine BESYLATE 2.5 MG TABLET (FP) PO SCH (09:42)
[2019-01-03] MEDS: MYCOPHENOLATE MOFETIL 500 MG TABLET PO SCH (09:42)
[2019-01-03] MEDS ORDERED: VANCOMYCIN 1 GRAM (PRE-DOCKED) 1,000 MG/250 ML BAG IVPB SCH (10:45)
[2019-01-03] MEDS ORDERED: CEFEPIME 2 GM in DEXTROSE 5%-WATER 100 ML IVPB SCH (10:45)
--- NOTE | 2019-01-03 10:47 | DS ---
Physical Exam: SUBJECTIVE: Patient seen and examined at bedside. no acute events overnight. c/ o pain in the tip of finger. states its been the same since November (12/24/18) when MRI was done. Had MRI of hand after failure of 10 day course of Doxycycline. denies fever, chills, cp, sob, n/v/d, myalgias, urinary sxs. Faxed release of info forms to [facility] in order to obtain MRI pictures. They will mail us the discs. pt was for bx yesterday but surgeon was hesitant to perform bx due to risk of post op complications. We will consulted another surgeon for a second opinion who was hesitant to perform bx due to similar reasons. discussed w/ pt options of snf vs home for abx tx and states at this time she would like to go home and be taught how to self administer abx. OBJECTIVE: Vital Signs Period Temp Pulse Resp BP Sys/Ovalle Pulse Ox Last 24 Hr 97.7 F-98.2 F 63-75 18-20 92-114/57-72 98-98 PHYSICAL EXAM GENERAL: Awake, alert, and fully oriented, in no acute distress. HEAD: Normal with no signs of trauma. EYES:PERRLA, EOMI, sclera anicteric, conjunctiva clear. EARS, NOSE, THROAT: Ears normal,oropharynx clear without exudates. Moist mucous membranes. NECK: Normal range of motion, supple without lymphadenopathy, JVD, or masses. LUNGS: Breath sounds equal, clear to auscultation bilaterally. HEART: Regular rate and rhythm, normal S1 and S2 without murmur, rub or gallop. ABDOMEN: Soft, nontender, not distended, normoactive bowel sounds. MUSCULOSKELETAL: Normal range of motion at all joints. No CVA tenderness. UPPER EXTREMITIES: 2+ pulses, warm, well-perfused. B/L hands with swelling noted at all the tips of digits with slight erythema Right hand: +nondraining wound with black eschar on the 3rd distal phalanx of right hand on lateral side of nail, +tenderness at tip of the right 3rd finger. LOWER EXTREMITIES: 2+ pulses, warm, well-perfused. No calf tenderness. No peripheral edema. NEUROLOGICAL: Cranial nerves II-XII intact. Motor strength 5/5, Sensation intact. Normal speech. Normal gait. PSYCHIATRIC: Cooperative. Good eye contact. Appropriate mood and affect. SKIN: Warm, dry, normal turgor. LABS Laboratory Results - last 24 hr 01/03/19 01/03/19 01/03/19 06:45 06:45 06:45 WBC 3.1 L RBC 4.10 Hgb 12.6 Hct 36.9 MCV 89.9 MCH 30.8 MCHC 34.2 RDW 14.1 Plt Count 169 MPV 8.0 PT with INR 12.10 INR 1.03 PTT (Actin FS) 32.6 Sodium 140 Potassium 3.9 Chloride 106 Carbon Dioxide 27 Anion Gap 7 L BUN 14 Creatinine 0.6 Creat Clearance w eGFR > 60 Random Glucose 83 Calcium 8.1 L [id number] RAD/FINGER(S) RIGHT Rule out osteomyelitis of the right middle finger X-ray of the right middle finger, 3 views. The alignment is satisfactory without evidence of a fracture, dislocation, bone erosion or periosteal elevation. There is suggestion of mild soft tissue swelling. Impression: No gross bone abnormality is seen. Correlate clinically to determine further evaluation. MRI of the right third finger is suggested to rule out osteomyelitis considering the clinical history. HOSPITAL COURSE: Date of Admission:12/30/18 Pt f/w and was sent by rheum Dr. Mora. HPI note from Dr. Mora: One year ago the patient developed an abscess in the distal phalanx of the right 3rd finger. The abscess was drained and afterwards she was asymptomatic with no pain or swelling. On this occasion, about 5 weeks ago she developed pain and swelling in the same area, in the distal phalanx of the right 3rd finger after she had cut in the skin proximal to the nail bed. She again developed an abscess that drained spontaneously. She did not have fever or systemic symptoms. She was treated with Cephalexin 500 mg BID for 10 days, the swelling improved and stopped draining ,however continued having significant pain. X ray of the finger (12/06/18) (done at [facility]) was reported with soft tissue swelling and otherwise it was normal. MRI right hand (): findings compatible with osteomyelitis of the third distal phalanx with overlying cellulitis. There is probable cellulitis involving the fourth distal ray as well as evidence for osteitis versus incipient osteomyelitis of the fourth distal phalanx. Possible osteitis involving the second distal phalanx as well. No evidence for abscess. Lupus. 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 (abnormal serology present at least since January 2012). Pericarditis requiring pericardial window on 09/02/15. Dry eyes on Restasis. (DC Hydroxychloroquine 200 mg/d 2o to probable retinopathy). She has been stable on low dose Mycophenolate (500 mg BID) and on Pilocarpine 5 mg BID. Date of Discharge: 01/03/19 53 yo F PMH SLE, Raynaud's and HTN, presented to the ED with nonhealing wound of the right 3rd finger and MRI report from another facility showing she has OM of the distal phalanx. Admitted for Subacute Osteomyelitis of the R 3rd distal phalanx - MRI right hand (12/24/18) at [facility]: Findings compatible with osteomyelitis of the third distal phalanx with overlying cellulitis. There is probable cellulitis involving the fourth distal ray as well as evidence for osteitis versus incipient osteomyelitis of the fourth distal phalanx. Possible osteitis involving the second distal phalanx as well. No evidence for abscess. We Faxed release of info forms to [facility] in order to obtain MRI pictures. They will mail us the discs. In [facility], afebrile, VSS, no leukocytosis. Xray of right 3rd finger - No gross bone abnormality is seen. s/p IV ceftriaxone 2gm and vancomycin given at the ED. mildly elevated CRP/ESR (.4/39). ucx, bcx neg. ID (Dr. Foster) consulted. Abx were held for bone bx. Bone bx cancelled by surgery consult due to concern for poor wound healing. 2nd opinion was obtained and agreed. Pt will be dcd today w/ PICC for 6wk course of empiric abx tx w/ Vanco 1g and cefepime 2g BID. Pt informed she will need weekly monitoring of vanco level and renal function and may need to trend CRP/ESR weekly. Discussed SNF placement due to multiple abx and frequency. pt verbalized understanding and wants to administer abx herself as she is opposed to SNF placement. ID, rheum and hand surgeon on board. #Raynaud's -norvasc 2.5mg qd #SLE -Mycophenolate 500mg BID Pt is stable and ready for dc w/ appropriate f/u w/ ID in 2 weeks. Minutes to complete discharge: 38 Discharge Summary Reason For Visit: OSTEOMYELITIS Current Active Problems Lupus (systemic lupus erythematosus) (Acute) Osteomyelitis (Acute) Raynaud's disease with gangrene (Acute) Condition: Improved - Instructions Diet, Activity, Other Instructions: You came in to get your osteomyeleitis/infection of the bone in your right middle finger checked out. we gave you antibiotics. You will need to be on two IV antibiotics (vancomycin 1g every 12 hours and cefepime 2g every 12 hours) for the next 6 weeks due to your osteomyeleitis. Therefore, prior to sending you out we put in a catheter that will allow you to receive scheduled IV antibiotics outside of the hospital. You were offered the option of going to a [facility] facility or to go home and self administer the IV antibiotics. You decided that you want to go home and self administer the IV antibiotics. A visiting advertising account representative/nurse will come to your house and teach you how to self administer the IV antibiotics. While on IV antibiotics, you will need routine weekly labs drawn to check your kidney function and your antibiotic/vancomycin level. Please get your Basic metabolic lab (BMP) level and vancomycin level checked weekly. Please also get your CRP and ESR levels checked which will show us how well you are responding to treatment. We did not do any biopsy in the hospital due to concern of poor wound healing of the surgical site which may result in worsening of infection and possible need for amputation. Please resume your home meds If your symptoms do not improve and/or worsen you may need to see a surgeon for a possible amputation, Please follow up about this with your primary care physician. Please follow up with your primary care physician within 1 week. Please follow up with [facility] Dr. Mora within 1 week. Please follow up with Infectious disease Dr. Foster in 2 weeks. If you experience any worsening fevers, chills, finger pain, chest pain, shortness of breath, , nausea, vomit, diarrhea, pain on urination, please call 911 or go to the ER. Referrals: Brandon Foster MD [Staff Physician] - 2 Weeks Lisandro Mora MD [Staff Physician] - 1 Week Disposition: HOME - Home Medications Comprehensive Discharge Medication List: Ambulatory Orders Amlodipine Besylate 2.5 mg PO DAILY 12/31/18 Mycophenolate Mofetil [Cellcept -] 500 mg PO BID 12/31/18 Oxycodone HCl/Acetaminophen [Percocet 5-325 mg Tablet] 1 tab PO Q6H PRN This patient is new to me today: Yes Date on this admission: 01/03/19 Emergency Visit: Yes ED Registration Date: 12/30/18 Care time: The patient presented to the Emergency Department on the above date and was hospitalized for further evaluation of their emergent condition. Critical Care patient: No - Discharge Referral Referred to [facility] Med P.C.: No
--- NOTE | 2019-01-03 10:58 | PN ---
Teaching Attending Note Name of Resident: Dawit Haney ATTENDING PHYSICIAN STATEMENT I saw and evaluated the patient. I reviewed the resident's note and discussed the case with the resident. I agree with the resident's findings and plan as documented. SUBJECTIVE:asymptomatic. denies Cp, SOB< fever, chills, N/V/C?D OBJECTIVE: Last Vital Signs Temp Pulse Resp BP Pulse Ox 98.0 F 69 18 98/60 98 01/03/19 08:57 01/03/19 08:57 01/03/19 08:58 01/03/19 08:57 01/03/19 08:58 General NAD Extremities B/L hands with swelling noted at all the tips of digits with slight erythema. R middle finger with black eschar noted on lateral side of nail. whole tip is tender to palpation ASSESSMENT AND PLAN: 53yo F wtih PMH HTN, SLE with Raynaud presented to the ER wt MRI report from another facility showing she has OM of the distal phalanx 1. R middle finger OM- mildly elevated CRP/ESR. Bone bx cancelled due to concern for poor wound healing. 2nd opinion was obtained and agreed. will empirically treat at this time with Vanco and cefepime BID for 6-8 weeks. will need weekyl monitoring of vanco level and renal function. PICC line to be placed for senior living abx. discussed SNF placement due to multiple abx and frequency. pt verbalized understanding and wants to administer abx herself as she is opposed to SNF placement. VNS arranged. . ID, rheum and hand surgeon on board. pain control 2. SLE- cont home medications. is on norvasc low dose for raynauds. 3. HTN- error as pt does not have HTN and is on CCB for raynauds 4. DVT ppx- lovenox 5. d/c home after PICC
--- NOTE | 2019-01-03 11:14 | PN ---
Progress Note, Physician History of Present Illness: OOB IN CHAIR NO C/O HAND PAIN NO WOUND DRAINAGE NO F/C [facility] FEEL BONE BX TOO RISKY IN THIS PATIENT - Current Medication List Current Medications: Active Medications Acetaminophen (Tylenol -) 325 mg PO Q6H PRN PRN Reason: PAIN SCALE 6-10 Last Admin: 01/02/19 21:02 Dose: 325 mg Amlodipine Besylate (Norvasc -) 2.5 mg PO DAILY [facility] Last Admin: 01/03/19 09:42 Dose: Not Given Enoxaparin Sodium (Lovenox -) 40 mg SQ DAILY [facility] Last Admin: 01/03/19 09:41 Dose: 40 mg Vancomycin HCl (Vancomycin (Pre-Docked)) 1,000 mg in 250 mls @ 166.667 mls/hr IVPB Q12H [facility]; Protocol Cefepime HCl 2 gm/ Dextrose 100 mls @ 200 mls/hr IVPB BID [facility]; Protocol Mycophenolate Mofetil (Cellcept -) 500 mg PO BID [facility] Last Admin: 01/03/19 09:42 Dose: 500 mg Oxycodone HCl (Roxicodone -) 5 mg PO Q6H PRN PRN Reason: PAIN SCALE 6-10 Last Admin: 01/02/19 21:04 Dose: 5 mg - Objective Vital Signs: Vital Signs Temperature 98.0 F 01/03/19 08:57 Pulse Rate 69 01/03/19 08:57 Respiratory Rate 18 01/03/19 08:58 Blood Pressure 98/60 01/03/19 08:57 O2 Sat by Pulse Oximetry (%) 98 01/03/19 08:58 Constitutional: Yes: No Distress Eyes: Yes: Conjunctiva Clear Cardiovascular: Yes: Regular Rate and Rhythm, S1, S2 Respiratory: Yes: CTA Bilaterally Gastrointestinal: Yes: Normal Bowel Sounds, Soft. No: Tenderness Extremities: Yes: Other (SWELLING DISTAL R 3RD DIGIT NO ERYTHEMA/ DRAINAGE) Labs: CBC, BMP 01/03/19 06:45 01/03/19 06:45 INR, PTT INR 1.03 (0.83-1.09) 01/03/19 06:45 Assessment/Plan CHRONIC OSTEOMYELITIS DISTAL R 3RD DISTAL PHALANX HX CONNECTIVE TISSUE DZ BONE BX WILL NOT BE PERFORMED CONTINUE EMPIRIC VANCOMYCIN CEFEPIME PICC FOR OUTPATIENT TX 6W F/U IN OFFICE 2W
[2019-01-03] MEDS ORDERED: CEFEPIME HCL 2 GM VIAL (RESTRICTED TO ID) ONE (13:07)
[2019-01-03] MEDS ORDERED: DEXTROSE 5%-WATER 100 ML IVPB ONE (13:07)
[2019-01-03 17:08] VITALS: BP 119/77; PULSE 64; TEMP 97.7
== END 2019-01-03 21:00 | disposition home or self-care (01) | DRG 344 ==
LOC: JER 20:19 → JERBED 23:55 → J7W 12-31 04:09
PROVIDERS: ADMIT Internal Medicine; ATTEND Internal Medicine
PROC: 02HV33Z Insertion of Infusion Device into Superior Vena Cava, Percutaneous Approach (ICD-10-PCS; principal; 2019-01-03)
PROC: B518ZZA Fluoroscopy of Superior Vena Cava, Guidance (ICD-10-PCS; 2019-01-03)
DX: M86.8X4 Other osteomyelitis, hand (principal); L03.011 Cellulitis of right finger; M32.9 Systemic lupus erythematosus, unspecified; I73.00 Raynaud's syndrome without gangrene; I10 Essential (primary) hypertension
CPT/HCPCS: 36415; 36569; 73140-TC-RT-FY; 77001-TC-FY; 80048; 80053; 81003; 81015; 83735; 84100; 84703; 85025; 85027; 85610; 85651; 85730; 86140; 87040; 87086; 93005; 93010; 99282-25; C1751; J1644; J7517